=== PATIENT | female | born 1965 ===

== ENCOUNTER 2025-03-13 10:25 | Outpatient (REF) | payer OTHER, BC, SELFPAY ==
--- OUTSIDE RECORDS SUMMARY | 2025-03-08 23:59 | XMS_ITS | Continuity of Care Document ---
Author Organization [facility] Address [address] [place] [address]- Care Team Providers Care Diabetes Territory Manager Name Role Phone Asaf Ulrich DO Primary Care Physician [phone] Encounter [facility] Date(s): 02/06/25 - 03/08/25 [facility] [address] [place], [place] [address] Attending Physician: AdmTed [id number] Admitting Physician: [email or web address] Referring Physician: Admtr, [id number] Encounter Type: Triage Allergies, Adverse Reactions, Alerts No Known Allergies Immunizations Given and Recorded Vaccine Date Status Refusal Reason tetanus/diphtheria/pertussis, acel(Tdap) 07/13/24 Given tetanus/diphtheria/pertussis, acel(Tdap) 1 06/19/10 Given pneumococcal 20-valent conjugate vaccine 2 07/13/24 Given SARS-CoV-2 (COVID-19) mRNA-1273 vaccine 07/22/21 R ecorded SARS-CoV-2 (COVID-19) mRNA-1273 vaccine 10/11/20 R ecorded SARS-CoV-2 (COVID-19) mRNA-1273 vaccine 09/17/20 R ecorded 1Admin Note: vis given 2Result Comment: mfd: [facility] Medications atorvastatin 40 mg oral tablet 1 tablet = 40 mg, By Mouth, Daily, # 30 tablet, 0 Refills, Maintenance, 01/27/24 8:04:00 PM EDT, Tablet, Partial fill upon patient request if the prescription is for a schedule II opioid drug. Start Date: 01/27/24 Status: Ordered Quantity: 30.0 Unit: tablet Repeat number: 1 clonazePAM 1 mg oral tablet 1 tablet = 1 mg, By Mouth, Daily, PRN Anxiety, 0 Refills, Maintenance, 12/03/23 1:59:00 PM EDT, Partial fill upon patient request if the prescription is for a schedule II opioid drug. Start Date: 12/03/23 Status: Ordered Repeat number: 1 gabapentin 300 mg oral capsule 300 mg, 1, capsule, By Mouth, 2 times a day, for pain, start with tab QHS, may then increase to BID, # 60 capsule, Refills 2, Tot. Refills 2, Maintenance, 12/13/24 2:01:00 PM EDT, Route to Pharmacy Electronically, [facility]/pharmacy #[id number], Partial fill upon patient request if the prescription is for a schedule II opioid drug., 157, cm, 12/13/24 13:37:00 EDT, Height, 72.8, kg, 06/01/24 16:24:00 EDT, Dry Weight Start Date: 12/13/24 Status: Ordered Quantity: 60.0 Unit: capsule Repeat number: 3 mirtazapine 15 mg oral tablet 1 tablet = 15 mg, By Mouth, Daily at bedtime, # 30 tablet, 0 Refills, Maintenance, 12/03/23 2:00:00 PM EDT, Tablet, Partial fill upon patient request if the prescription is for a schedule II opioid drug. Start Date: 12/03/23 Status: Ordered Quantity: 30.0 Unit: tablet Repeat number: 1 Mounjaro 10 mg/0.5 mL subcutaneous solution = 10 mg, Subcutaneous Injection, Every week, rotate injection sites, dose increased, # 4 each, 1 Refills, Maintenance, 11/29/24 1:39:00 PM EDT, Solution, [facility]/pharmacy #[id number], Partial fill upon patient request if the prescription is for a schedule II opioid drug., 157, cm, 09/27/24 8:43:00 EST, Height, 72.8, kg, 06/01/24 16:24:00 EDT, Dry Weight Start Date: 11/29/24 Status: Ordered Quantity: 4.0 Unit: each Repeat number: 2 Mounjaro 12.5 mg/0.5 mL subcutaneous solution = 12.5 mg, Subcutaneous Injection, Every week, rotate injection sites, dose increased, # 4 each, 3 Refills, Maintenance, 12/13/24 1:54:00 PM EDT, Solution, [facility]/pharmacy #[id number], Partial fill upon patientrequest if the prescription is for a schedule II opioid drug., 157, cm, 12/13/24 13:37:00 EDT, Height, 72.8, kg, 06/01/24 16:24:00 EDT, Dry Weight Start Date: 12/13/24 Status: Ordered Quantity: 4.0 Unit: each Repeat number: 4 triamcinolone 55 mcg/inh nasal spray 2 sprays = 110 mcg, Nares, Both, Daily, prn allergy symptoms, # 16.5 Gm, 3 Refills, Maintenance, 12/13/24 2:00:00 PM EDT, [place], [facility]pharmacy #[id number], Partial fill upon patient request if the prescription is for a schedule II opioid drug., 2 sprays Nares, Both Daily,Instr:prn allergy symptoms, 157, cm,12/13/24 13:37:00 EDT, Height, 72.8, kg, 06/01/24 16:24:00 EDT, Dry Weight Start Date: 12/13/24 Status: Ordered Quantity: 16.5 Unit: g Repeat number: 4 venlafaxine 75 mg oral capsule, extended release TAKE 1 CAPSULE BY MOUTH EVERY DAY IN THE MORNING Start Date: 12/05/24 Status: Ordered Repeat number: 1 Vitamin D3 2000 intl units oral tablet 1 tablet = 50 mcg, By Mouth, Daily, # 90 tablet, 1 Refills, Maintenance, 12/13/24 1:55:00 PM EDT, [id number], Partial fill upon patient request if the prescription is for a schedule II opioid drug., 157, cm, 12/13/24 13:37:00 EDT, Height, 72.8, kg, 06/01/24 16:24:00 EDT, Dry Weight Start Date: 12/13/24 Stop Date: 06/11/25 Status: Ordered Quantity: 90.0 Unit: tablet Repeat number: 2 zolpidem 10 mg oral tablet 1 tablet = 10 mg, By Mouth, Daily at bedtime, PRN insomnia, # 30 tablet, 0 Refills, Maintenance, 12/03/23 2:00:00 PM EDT, Partial fill upon patient request if the prescription is for a schedule II opioid drug. Start Date: 12/03/23 Status: Ordered Quantity: 30.0 Unit: tablet Repeat number: 1 Problem List Condition Confirmation Course Effective Dates Status Health St atus Informant Anxiety disorder Confirmed Active Diabetes mellitus Confirmed Active H/O gestational diabetes mellitus, not currently Confirmed Active Overweight Confirmed Active Hepatic steatosis Confirmed Active Social History Social History Type Response Smoking Status Never (less than 100 in lifetime) entered on: 03/27/20 Sex Female Sex Representation Female (finding) Patient Care team information Care Team Personnel Name: Asaf Ulrich DO Position: [facility] Resident Member Role: PCP Address: [address] [place] [address] Telecom: Care Team Related Persons Name: DUSTY BOUCHER Name: NATALIA CRONIN Insurance Providers Guarantor name: MINDY GUO Health Plan Information #: 1 Payer: [employer] [facility] Payer Identifier: NA Member Number: [id number] Group Number: [id number] Subscriber Identifier: [id number] Relationship to Subscriber: self Coverage Type: NA Coverage Verification Date: NA Telecom: NA Address:
--- OUTSIDE RECORDS SUMMARY | 2025-03-14 11:15 | XMS_ITS | Clinical Summary ---
Author Organization [address] [place] [address] [place] [id number] Phone Care Team Providers Care Hole Digger Truck Driver Name Role Phone Physician, Pcp Unknown Primary Care Provider Cathleen vailable Surgical History Surgery Date Site/Laterality Comments SECTION PROCEDURE: IN DELIVERY ONLY CHOLECYSTECTOMY 08/17/2018 PROCEDURE: LAPAROSCOPY, CHOLECYSTECTOMY; COMMENT: Dr. Loco KNEE SURGERY Left PROCEDURE:KNEE SURGERY;COMMENT:partial, petella CHOLECYSTECTOMY 2017 PROCEDURE:CHOLECYSTECTOMY SECTION 2009 PROCEDURE: SECTION Medical History Medical History Date Comments Gallbladder attack DX:Gallbladde r attack Vomiting DX:Vomiting Family History Medical History Relation Name Comments Diabetes Daughter Alcohol abuse Father Hypertension Father Liver disease Father Arthritis Mother Diabetes Mother Hypertension Mother Cancer Sister Relation Name Status Comments Daughter Father Mother Sister Social History Tobacco Use Types Packs/Day Years Used Date Smoking Tobacco: Never Smokeless Tobacco: Never Alcohol Use Standard Drinks/Week Comments Yes 0 (1 standard drink = 0.6 oz pur e alcohol) Comments Unknown Sex and Gender Information Value Date Recorded Sex Assigned at Not on file Legal Sex Female 9:02 AM EST Gender Identity Not on file Sexual Orientation Not on file Obstetrics History Plan of Treatment Health Maintenance Due Date Last Done Comments Breast Cancer Screening 1964 Diabetes: Annual GFR (Glomerular Filtration Rate) 1964 Diabetes: Annual Foot Exam 02/26/1974 Diabetes: Annual Retina Eye Exam 02/26/1974 Hepatitis A Vaccines (1 of 2 - Risk 2-dose series) 02/26/1983 Cervical Cancer Screening: P ap Smear 02/26/1985 Zoster Vaccines (1 of 2) 02/26/2014 Cholesterol Screening (Lipid Panel) 08/09/2022 Depression Screening 08/09/2022 HIV Screening 08/09/2022 Hepatitis C Screening 08/09/2022 Social Influencers of Health Screening 08/09/2022 Hepatitis B Vaccines (1 of 3 - Risk 3-dose series) 2024 RSV Immunization Adult Patients (1 - Risk 60-74 years 1-dose series) 2024 COVID-19 Vaccine (4 - 2023-2 5 season) 2024 07/22/2021, 10/11/2020, 09/17/2020 Diabetes: Annual Urine Albumin-Creatinine Ratio (uACR) 10/27/2024 Diabetes: Blood Sugar Contro l Test (HGBA1C) 10/27/2024 Influenza Vaccine (#1) 2025 Colorectal Cancer Screening: FIT-DNA (Cologuard) 08/06/2027 08/06/2024, 08/06/2024 DTaP,Tdap,and Td Vaccines (3 - Td or Tdap) 07/13/2034 07/13/2024, 06/19/2010 Pneumococcal Vaccine: 50+ Years Completed 07/13/2024 Pneumococcal Vaccine: Pediatrics (0 to 5 Years) and At-Risk Patients (6 to 49 Years) Aged Out 07/13/2024 No longer eligible b ased on patient's age to complete this topic HIB Vaccines Aged Out No longer eligi ble based on patient's age to complete this topic HPV Vaccines Aged Out No longer eligi ble based on patient's age to complete this topic IPV Vaccines Aged Out No longer eligi ble based on patient's age to complete this topic MMR Vaccines Aged Out No longer eligi ble based on patient's age to complete this topic Meningococcal ACWY Vaccine Aged Out N o longer eligible based on patient's age to complete this topic Meningococcal B Vaccine Aged Out No l onger eligible based on patient's age to complete this topic RSV Immunization Patients Under 20 months Aged Out No longer eligible b ased on patient's age to complete this topic Varicella Vaccines Aged Out No longer eligible based on patient's age to complete this topic Insurance GENERIC Care Teams Hole Digger Truck Driver Relationship Specialty Start Date End Date Physician, Pcp Unknown PCP - General 11/30/24
--- OUTSIDE RECORDS SUMMARY | 2025-03-14 11:15 | XMS_ITS | Clinical Summary ---
Author Organization [facility] Address [address] [place] [address] Care Team Providers Care Sessions Clerk Name Role Phone [facility], Medical Pediatrics Primary Care Provid er Medications mirtazapine (REMERON) 30 mg tablet Take 30 mg by mouth nightly. Active zolpidem (AMBIEN) 10 mg tablet Take 10 mg by mouth nightly as needed for sleep. Active tirzepatide (Mounjaro) 7.5 mg/0.5 mL pen injector Inject 7.5 mg under the skin every 7 days. Active Social History Tobacco Use Types Packs/Day Years Used Date Smoking Tobacco: Never Assessed Comments Unknown Sex and Gender Information Value Date Recorded Sex Assigned at Female 09/12/2024 11:51 AM EST Legal Sex Female 11:48 AM EST Gender Identity Female 09/12/2024 11:51 AM EST Sexual Orientation Straight 09/17/2024 8: 20 PM EST Last Filed Vital Signs Vital Sign Reading Time Taken Comments Blood Pressure - - Pulse - - Temperature - - Respiratory Rate - - Oxygen Saturation - - Inhaled Oxygen Concentration - - Weight 69.9 kg (154 lb 3.2 oz) 09/19/2024 2:22 P M EST Height 155 cm (5' 1.02 ) 09/19/2024 2:22 PM EST Body Mass Index 29.11 09/19/2024 2:22 PM EST Plan of Treatment Health Maintenance Due Date Last Done Comments Cervical Cancer Screening 1965 Colonoscopy 1964 FOBT / Fit Test 1964 HIV Screening 1964 HPV and Pap Smear 1964 Hepatitis C Screening 1964 Pap Smear 1964 Sigmoidoscopy 1964 Mammogram 2004 Zoster Vaccines (1 of 2) 02/26/2014 COVID-19 Vaccine (4 - 2023-2 5 season) 2024 07/22/2021, 10/11/2020, 09/17/2020 Alcohol/Substance Use Screening 09/06/2024 Depression Screening and Follow-Up 09/06/2024 Social Drivers of Health Annual Screening 09/06/2024 Influenza Vaccine (#1) 2025 Cologuard 08/06/2027 08/06/2024, 08/06/2024 Colon Cancer Screening 08/06/2027 DTaP,Tdap,and Td Vaccines (3 - Td or Tdap) 07/13/2034 07/13/2024, 06/19/2010 RSV Vaccine (60+ years old a nd patients) (1 - 1-dose 75+ series) 02/26/2039 Pneumococcal Vaccine: 50+ Years Completed 07/13/2024 Hepatitis B Vaccines Aged Out No long er eligible based on patient's age to complete this topic [place] [address] [place] [address] OUT OF STATE PPO Care Teams Sessions Clerk Relationship Specialty Start Date End Date [facility], Medical Pediatrics [address] [place] [address] PCP - General Pediatrics 09/12/24
--- OUTSIDE RECORDS SUMMARY | 2025-03-14 11:15 | XMS_ITS | Clinical Summary ---
Author Organization [facility] Address [address] [place] [id number] Care Team Providers Care Split Leather Department Supervisor Name Role Phone Shalonda, Primary Care Provider Unavailabl e Allergies No known active allergies Medications No known medications Family History Medical History Relation Name Comments Alcohol abuse Father Hypertension Father Liver disease Father Arthritis Mother Diabetes Mother Hypertension Mother Cancer Sister Relation Name Status Comments Father Mother Sister Social History Tobacco Use Types Packs/Day Years Used Date Smoking Tobacco: Never Smokeless Tobacco: Never Alcohol Use Standard Drinks/Week Comments Yes 0 (1 standard drink = 0.6 oz pur e alcohol) socially, one drink/mo Sex and Gender Information Value Date Recorded Sex Assigned at Not on file Gender Identity Not on file Sexual Orientation Not on file Job Start Date Occupation Industry Not on file Not on file Not on file Last Filed Vital Signs Vital Sign Reading Time Taken Comments Blood Pressure 137/86 01/31/2021 10:57 AM EDT Pulse 78 01/31/2021 10:57 AM EDT Temperature 36.5 C (97.7 F) 01/31/2021 10:57 AM EDT Respiratory Rate 16 01/21/2021 11:39 AM EDT Oxygen Saturation 98% 01/21/2021 11:39 AM EDT Inhaled Oxygen Concentration - - Weight 72.1 kg (159 lb) 05/28/2021 12:54 PM EDT Height 156.2 cm (5' 1.5 ) 05/28/2021 12:54 PM ED T Body Mass Index 29.56 05/28/2021 12:54 PM EDT Plan of Treatment Health Maintenance Due Date Last Done Comments Hepatitis C Screening 1965 COVID-19 Vaccine (#1) 1964 Depression Screening 1976 Preventative Health Evaluation 02/26/1982 DTap / Tdap / Td (1 - Tdap) 02/26/1983 Cervical Cancer Screening (P ap Smear) 02/26/1985 Colon Cancer Screening (Colonoscopy) 02/26/2009 Breast Cancer Screening (Mammogram) 02/26/2014 Shingrix-Zoster Vaccine (1 of 2) 02/26/2014 BMI Counseling 01/31/2022 01/31/2021 Influenza Vaccine (#1) 2025 RSV Adult > 60+ Yrs or Pregn ant (1 - 1-dose 75+ series) 02/26/2039 Hepatitis B Vaccines Aged Out No long er eligible based on patient's age to complete this topic Pneumococcal Vaccine Aged Out No long er eligible based on patient's age to complete this topic RSV Ped < 20 months Aged Out No longe r eligible based on patient's age to complete this topic Care Teams Split Leather Department Supervisor Relationship Specialty Start Date End Date Unknown, PCP - General 01/20/21
== END 2025-03-13 10:26 | disposition home or self-care (01) ==
LOC: HO.HOSX 10:25
PROVIDERS: Visit Provider Physician Assistant
DX: Z13.89 Encounter for screening for other disorder (principal)